=== PATIENT | female | born 2000 | race Hispanic/Latino ===

== ENCOUNTER 2024-04-18 23:44 | Emergency (ER) | payer OTHER ==
[~2024-04-18] VITALS: Ht 172.7 cm; Wt 69.0 kg
[2024-04-18 23:52] VITALS: BP 132/80
[2024-04-19] VITALS: BP 126/88
[2024-04-19] MEDS ORDERED: GUAIFENESIN 600 MG/TAB PO ONE (00:10)
[2024-04-19] MEDS ORDERED: predniSONE 20 MG/TAB PO ONE (00:10)
[2024-04-19] MEDS ORDERED: NASACORT A55 MCG/ACT NS (00:20)
[2024-04-19] MEDS ORDERED: CLARITIN-D1 TAB PO (00:20)
[2024-04-19 00:46] VITALS: BP 126/88
== END 2024-04-19 01:05 | disposition home or self-care (01) ==
LOC: ED 23:44
DX: J32.9 Chronic sinusitis, unspecified (principal)

== ENCOUNTER 2024-08-25 13:44 | Emergency (ER) | payer SELFPAY ==
[~2024-08-25] VITALS: Ht 172.7 cm; Wt 72.5 kg
[~2024-08-25 13:44] MED LIST: CLARITIN-D1 TAB PO; NASACORT A55 MCG/ACT NS
[2024-08-25] MEDS ORDERED: IPRATROPIUM-Albuterol 0.5MG-2.5MG/3 ML NEB ONE (14:10)
[2024-08-25] MEDS ORDERED: methylPREDNISolone SODIUM SUCC 125 MG/2 ML SDV IV ONE (14:10)
[2024-08-25 14:55] LABS: ALBUMIN 4.9 g/dL (3.2-5.0); BILIRUBIN, TOTAL 0.6 mg/dL (0.02-1.3); CREATININE 0.6 mg/dL (0.5-1.0); POTASSIUM 3.3 mmol/l (3.5-5.1); TOTAL PROTEIN 8.6 g/dL (6.3-8.2)
[2024-08-25 15:03] LABS: BASO% 0.3 % (0-3); EOS% 0.5 % (0-8); HEMATOCRIT 40.1 % (37.0-47.0); HEMOGLOBIN 13.4 g/dl (12.0-16.0); MEAN CELL VOLUME 78.3 fL CALC (80.0-100.0); MEAN CORPUSCULAR HGB 26.2 pG CALC (26.0-32.0); MEAN CORPUSCULAR HGB CONC 33.4 g/dL CAL (32.0-36.0); MONO% 8.5 % (2-13); NEUT# 3.99 thou/uL (2.00-7.15); NEUT% 66.7 % (42-76); RED BLOOD COUNT 5.12 mill/uL (4.20-5.60); RED CELL DISTRI WIDTH 14.2 % (11.5-15.5)
[2024-08-25 15:30] VITALS: BP 96/69
[2024-08-25 15:45] VITALS: BP 110/70
[2024-08-25] MEDS ORDERED: ZPAK PO (15:51)
[2024-08-25] MEDS ORDERED: AZITHROMYCIN500 MG PO (15:51)
[2024-08-25] MEDS ORDERED: PREDNISONE20 MG PO (15:51)
[2024-08-25] MEDS ORDERED: PROAIR HFA IN (15:51)
[2024-08-25] MEDS ORDERED: LEVOCETIRIZINE D5 MG PO (15:51)
[2024-08-25 16:00] VITALS: BP 122/72
== END 2024-08-25 16:05 | disposition home or self-care (01) | DRG 203 ==
LOC: ED 13:44
PROVIDERS: Nurse Practitioner
DX: J45.909 Unspecified asthma, uncomplicated (principal)